=== PATIENT | male | born 2000 | race Hispanic/Latino ===

== ENCOUNTER 2020-10-20 22:26 | Emergency (ER) ==
[~2020-10-20] VITALS: Ht 160 cm; Wt 69.7 kg
[2020-10-20] MEDS ORDERED: ADDE20CA3 PO (23:01)
[2020-10-21] MEDS ORDERED: LIDOCAINE VISCOUS 2% SOLN 15ML UDC SSP ONE (06:30)
[2020-10-21] MEDS ORDERED: AUGMENTIN 875 MG TAB PO ONE (06:30)
[2020-10-21] MEDS ORDERED: PERI12LIQ PO (06:33)
[2020-10-21] MEDS ORDERED: AUGM875T28 PO (06:34)
== END 2020-10-21 07:00 | disposition home or self-care (01) ==
LOC: M ED 22:26
DX: K04.7 Periapical abscess without sinus (principal); R68.84 Jaw pain; R51.9 Headache, unspecified

== ENCOUNTER 2021-03-08 17:18 | Emergency (ER) | payer OTHER ==
[~2021-03-08] VITALS: Ht 160 cm; Wt 74.9 kg
[~2021-03-08 17:18] MED LIST: ADDE20CA3 PO; AUGM875T28 PO; PERI12LIQ PO
[2021-03-08] MEDS ORDERED: ADDE1TAB14 PO (17:49)
[2021-03-09 04:55] LABS: GC DNA AMPLIFICATION NEGATIVE (NEGATIVE)
[2021-03-09] MEDS ORDERED: MUPI2OI TOP (05:05)
[2021-03-09 05:19] VITALS: BP 177/69
[2021-03-09 10:45] LABS: HIV 1&2 SCREEN CENTAUR NEGATIVE (NEGATIVE)
== END 2021-03-09 06:11 | disposition home or self-care (01) ==
LOC: M ED 17:18
DX: L73.9 Follicular disorder, unspecified (principal)

== ENCOUNTER 2021-09-29 23:33 | Emergency (ER) | payer OTHER ==
[~2021-09-29] VITALS: Ht 160 cm; Wt 73.4 kg
[~2021-09-29 23:33] MED LIST changes: +ADDE1TAB14 PO; +MUPI2OI TOP
[2021-09-30] MEDS ORDERED: NS 1,000 ML IV ONE (00:20)
[2021-09-30] MEDS ORDERED: ISOVUE-370 76% 100ML VIAL As Ordered ONE (00:32)
[2021-09-30 01:23] LABS: BASO % 0.4 % (0.0-1.0); EOS % 0.3 % (0.0-3.0); HEMATOCRIT 46.5 % (42.0-52.0); HEMOGLOBIN 15.7 g/dl (13.5-17.5); LYMPH # 1.3 10^3/uL (1.5-5.0); LYMPH % 13.9 % (24.0-44.0); MEAN CORPUSCULAR HEMOGLOBIN 33.1 pg (27.0-33.0); MEAN CORPUSCULAR HGB CONC 33.8 g/dl (32.0-36.5); MEAN CORPUSCULAR VOLUME 98.1 fl (80.0-96.0); MONO # 0.7 10^3/uL (0.0-0.8); NEUTROPHILS # 7.5 10^3/uL (1.5-8.5); NEUTROPHILS % 77.9 % (36.0-66.0); PLATELET COUNT, AUTOMATED 239 10^3/uL (150-450); RED BLOOD COUNT 4.74 10^6/uL (4.30-6.10); WHITE BLOOD COUNT 9.6 10^3/uL (4.0-10.0)
[2021-09-30 01:51] LABS: BLOOD UREA NITROGEN 21 MG/DL (7-18); CALCIUM LEVEL 9.1 MG/DL (8.5-10.1); CARBON DIOXIDE LEVEL 28 MEQ/L (21-32); CHLORIDE LEVEL 107 MEQ/L (98-107); CREATININE FOR GFR 1.03 MG/DL (0.70-1.30); GLOMERULAR FILTRATION RATE > 60.0 (>60); GLUCOSE, FASTING 129 MG/DL (70-100); POTASSIUM SERUM 4.1 MEQ/L (3.5-5.1); SODIUM LEVEL 141 MEQ/L (136-145)
[2021-09-30 04:19] VITALS: BP 143/77
== END 2021-09-30 04:26 | disposition home or self-care (01) ==
LOC: M ED 23:33
DX: M54.2 Cervicalgia (principal); M54.50 Low back pain, unspecified; V49.50XA Passenger injured in collision with unspecified motor vehicles in traffic accident, initial encounter; F32.A Depression, unspecified; F90.9 Attention-deficit hyperactivity disorder, unspecified type; Y92.410 Unspecified street and highway as the place of occurrence of the external cause; Y93.9 Activity, unspecified; Y99.9 Unspecified external cause status; M25.572 Pain in left ankle and joints of left foot
CPT/HCPCS: 70450; 71260; 72125; 72128; 72131; 73090; 73110; 73130; 73502; 73610; 74177; 80048; 85025; 93041; 94760; 96360; 99285; Q9967

== ENCOUNTER 2021-12-18 04:32 | Emergency (ER) | payer OTHER ==
[~2021-12-18] VITALS: Ht 160 cm; Wt 72.7 kg
[2021-12-18 05:25] LABS: RSV AMPLIFICATION NEGATIVE (NEGATIVE)
[2021-12-18] MEDS ORDERED: KETOROLAC TROMETHAMINE 10 MG TAB PO ONE (06:50)
[2021-12-18] MEDS ORDERED: ONDANSETRON 4MG ORAL DISINTEGRATING TAB PO ONE (06:50)
[2021-12-18 08:03] LABS: BASO % 0.4 % (0.0-1.0); EOS # 0.1 10^3/uL (0.0-0.5); EOS % 0.7 % (0.0-3.0); HEMATOCRIT 47.8 % (42.0-52.0); HEMOGLOBIN 15.6 g/dl (13.5-17.5); LYMPH # 1.8 10^3/uL (1.5-5.0); MEAN CORPUSCULAR HEMOGLOBIN 32.5 pg (27.0-33.0); MEAN CORPUSCULAR HGB CONC 32.6 g/dl (32.0-36.5); MEAN CORPUSCULAR VOLUME 99.6 fl (80.0-96.0); MONO # 0.5 10^3/uL (0.0-0.8); MONO % 7.9 % (2.0-8.0); NEUTROPHILS # 4.3 10^3/uL (1.5-8.5); NEUTROPHILS % 63.6 % (36.0-66.0); PLATELET COUNT, AUTOMATED 223 10^3/uL (150-450); WHITE BLOOD COUNT 6.7 10^3/uL (4.0-10.0)
[2021-12-18 08:28] LABS: ALBUMIN 3.7 GM/DL (3.2-5.2); ALT/SGPT 26 U/L (12-78); BILIRUBIN,DIRECT 0.1 MG/DL (0.0-0.2); BILIRUBIN,TOTAL 0.4 MG/DL (0.2-1.0); BLOOD UREA NITROGEN 23 MG/DL (7-18); CALCIUM LEVEL 8.7 MG/DL (8.5-10.1); CARBON DIOXIDE LEVEL 27 MEQ/L (21-32); CHLORIDE LEVEL 108 MEQ/L (98-107); CREATININE FOR GFR 0.97 MG/DL (0.70-1.30); GLOMERULAR FILTRATION RATE > 60.0 (>60); GLUCOSE, FASTING 115 MG/DL (70-100); MAGNESIUM LEVEL 1.8 MG/DL (1.8-2.4); POTASSIUM SERUM 4.2 MEQ/L (3.5-5.1); SODIUM LEVEL 141 MEQ/L (136-145)
[2021-12-18 08:31] LABS: ERYTHROCYTE SEDIMENTATION RATE 2 mm/hr (0-15)
[2021-12-18] MEDS ORDERED: IBUP80TA PO (08:39)
[2021-12-18] MEDS ORDERED: ONDA4TAB6 PO (08:39)
[2021-12-18 08:56] VITALS: BP 126/72
== END 2021-12-18 09:00 | disposition home or self-care (01) ==
LOC: M ED 04:32
DX: R51.9 Headache, unspecified (principal); Z79.899 Other long term (current) drug therapy